=== PATIENT | male | born 1955 | race Caucasian/White ===

== ENCOUNTER → 2016-11-13 | Outpatient (CLI) | payer BC | LOC: GMAL 10:35 | PROVIDERS: ATTEND Family Medicine | DX: E29.1 Testicular hypofunction (principal) ==

== ENCOUNTER → 2017-05-14 | Outpatient (CLI) | payer OTHER | END | disposition home or self-care (01) | LOC: GMAL 11:23 | PROVIDERS: ATTEND Family Medicine | DX: Z00.01 Encounter for general adult medical examination with abnormal findings (principal) ==

== ENCOUNTER → 2017-08-13 | Outpatient (CLI) | payer OTHER | END | disposition home or self-care (01) | LOC: GMAL 11:54 | PROVIDERS: ATTEND Family Medicine | DX: E55.9 Vitamin D deficiency, unspecified (principal) ==

== ENCOUNTER 2017-10-06 20:11 | Emergency (ER) | payer OTHER ==
[2017-10-06 20:32] VITALS: TEMP 98.1; O2SAT 97
[2017-10-06] MEDS ORDERED: KETOROLAC TROMETHAMINE INJ 60 MG/2 ML VIAL IM ONE (20:54)
--- NOTE | 2017-10-06 20:57 | ED.PDOC ---
History of Present Illness - General Chief Complaint: Headache Stated Complaint: headache,bloating,constipation,R ab pain,L ankle p Time Seen by Provider: 10/06/17 20:53 Source: patient, RN notes reviewed, Vital Signs reviewed Exam Limitations: no limitations - History of Present Illness Timing/Duration: other - 3 days Quality: moderate, throbbing Head Injury Location: frontal Recent Head Trauma: no recent headache/trauma, occasional headaches Improving Factors: rest Worsening Factors: nothing Associated Symptoms: denies symptoms Allergies/Adverse Reactions: Allergies NO KNOWN ALLERGY Allergy (Verified 10/06/17 20:31) Home Medications: Ambulatory Orders Amlodipine Besylate 5 mg PO DAILY 10/06/17 Aspirin [Aspirin Adult Low Dose] 81 mg PO DAILY 10/06/17 Blood Pressure Pill DAILY 10/06/17 Hydroxyzine Pamoate [Vistaril] 50 mg PO Q8HR PRN #20 cap 10/06/17 Ketorolac Tromethamine [Toradol Tabs] 10 mg PO Q6HR PRN #20 tab 10/06/17 Metformin HCl 500 mg PO DAILY 10/06/17 Water Pills DAILY 10/06/17 Review of Systems - Review of Systems Constitutional: Denies: fever, weakness EENTM: States: nose congestion. Denies: throat pain, mouth pain Respiratory: Denies: cough, orthopnea, short of breath, wheezing Cardiology: Denies: chest pain, edema, palpitations, syncope Gastrointestinal/Abdominal: States: constipation. Denies: abdominal pain, diarrhea, nausea, vomiting Musculoskeletal: States: other - contusion to left ankle. Denies: joint pain, muscle pain Skin: States: no symptoms reported Neurological: States: no symptoms reported Past Medical History (General) - Patient Medical History Hx Seizures: No Hx Stroke: No Hx Dementia: No Hx Asthma: No Hx of COPD: No Hx Cardiac Disorders: Yes - stents in 2011 Hx Congestive Heart Failure: No Hx Pacemaker: No Hx Hypertension: Yes Hx Thyroid Disease: No Hx Diabetes: Yes Hx Gastroesophageal Reflux: No Hx Renal Disease: No Hx Cancer: No Hx of HIV: No Hx Hepatitis C: No Hx MRSA: No Surgical History: other - Vaccination History Hx Influenza Vaccination: Yes - Social History Hx Tobacco Use: No Hx Alcohol Use: No Family Medical History - Family History Mother Family History: Unknown Physical Exam - Physical Exam General Appearance: Alert, Anxious, Well Developed, Well Groomed, Well Nourished Eyes, Ears, Nose, Throat Exam: normal ENT inspection, other Neck: non-tender, full range of motion, supple, normal inspection Cardiovascular/Chest: normal peripheral pulses, regular rate, rhythm, no edema, no gallop Respiratory: chest non-tender, lungs clear, normal breath sounds, no respiratory distress, no accessory muscle use Gastrointestinal/Abdominal: normal bowel sounds, non tender, soft Back Exam: normal inspection, no CVA tenderness, no vertebral tenderness Extremity: normal range of motion, non-tender, normal inspection, other - edema / contusion to left ankle, 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, 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 Copy, Patient Portal Self Enrollment, Work Release Form Instructions: DI for Headache Diet: resume usual diet Activity: increase activity as tolerated Referrals: Ervin Redmond III, MD [Primary Care Provider] - 1-2 Weeks Prescriptions: Ketorolac Tromethamine [Toradol Tabs] 10 mg PO Q6HR PRN #20 tab PRN Reason: Pain Hydroxyzine Pamoate [Vistaril] 50 mg PO Q8HR PRN #20 cap PRN Reason: Anxiety Home Medications: Ambulatory Orders Amlodipine Besylate 5 mg PO DAILY 10/06/17 Aspirin [Aspirin Adult Low Dose] 81 mg PO DAILY 10/06/17 Blood Pressure Pill DAILY 10/06/17 Hydroxyzine Pamoate [Vistaril] 50 mg PO Q8HR PRN #20 cap 10/06/17 Ketorolac Tromethamine [Toradol Tabs] 10 mg PO Q6HR PRN #20 tab 10/06/17 Metformin HCl 500 mg PO DAILY 10/06/17 Water Pills DAILY 10/06/17 Additional Instructions: return if numbness/ weakness/ worsening/ intractable headache/ problem/ concern
[2017-10-06 21:27] VITALS: BP 143/90
== END 2017-10-06 21:28 | disposition home or self-care (01) ==
LOC: ER 20:11
DX: G44.209 Tension-type headache, unspecified, not intractable (principal); I10 Essential (primary) hypertension; E11.9 Type 2 diabetes mellitus without complications; Z98.61 Coronary angioplasty status; Z79.82 Long term (current) use of aspirin
CPT/HCPCS: 36416; 82948; J1885

== ENCOUNTER 2017-12-09 05:36 | Day surgery (SDC) | payer OTHER ==
[2017-12-09] MEDS ORDERED: LACTATED RINGERS 1,000 ML ONE (06:11)
[2017-12-09 09:46] VITALS: BP 114/79; TEMP 98; O2SAT 98
[2017-12-09] MEDS ORDERED: LIDOCAINE 1% 10 ML VIAL INJ ONE (10:00)
[2017-12-09] MEDS ORDERED: PROPOFOL 200 MG/20 ML VIAL IV ONE (10:00)
--- NOTE | 2017-12-09 10:40 | OP ---
DATE OF PROCEDURE: 12/09/17 PREOPERATIVE DIAGNOSIS: 1. History of polyps, last colonoscopy in 2010. POSTOPERATIVE DIAGNOSIS: 1. Four ascending colon polyps. PROCEDURE: 1. Colonoscopy polypectomy. SURGEON: Domingo Monreal MD. COMPLICATIONS: None apparent. BLOOD LOSS: None. MEDICATIONS: Monitored anesthesia care. DESCRIPTION OF PROCEDURE: Informed consent was obtained prior to sedation. The preprocedure cardiopulmonary assessment was satisfactory. The patient was placed in the left lateral decubitus position and was sedated. A digital rectal exam was unremarkable. The tip of the Olympus colonoscope was inserted in the rectum and guided over to the cecum. The colon was tortuous and there was loop formation and we had to apply abdominal pressure to the abdominal wall in order to reach the cecum. The cecum was reached and identified by locating the ileocecal valve and appendiceal orifice. The ileocecal valve was intubated and terminal ileum was inspected and was unremarkable. Prep was good. The mucosa of the cecum, ascending colon, hepatic flexure, transverse colon, splenic flexure, descending colon and sigmoid colon was closely examined. Direct and retroflexed views of the rectum were obtained. The patient had four polyps in the ascending colon. These were sessile and ranged from 4 to 8 mm in size. These were all removed with snare. Two were removed with a hot snare and two with cold snare. They were all recovered. The procedure was then terminated. RECOMMENDATIONS: 1. Followup polyp pathology to determine timing of the next colonoscopy. 2. Followup with me on a p.r.n. basis. #[id number] cc: Ervin Redmond MD MTDD
== END 2017-12-09 09:35 | disposition home or self-care (01) ==
LOC: AMB 05:36
PROVIDERS: ATTEND Internal Medicine Gastroenterology
DX: Z12.11 Encounter for screening for malignant neoplasm of colon (principal); D12.2 Benign neoplasm of ascending colon; Q43.8 Other specified congenital malformations of intestine; K59.00 Constipation, unspecified; R14.0 Abdominal distension (gaseous); K76.0 Fatty (change of) liver, not elsewhere classified; I10 Essential (primary) hypertension; E11.9 Type 2 diabetes mellitus without complications; K21.9 Gastro-esophageal reflux disease without esophagitis; I25.10 Atherosclerotic heart disease of native coronary artery without angina pectoris; Z86.010 Personal history of colon polyps; Z79.84 Long term (current) use of oral hypoglycemic drugs; Z79.82 Long term (current) use of aspirin; Z79.899 Other long term (current) drug therapy
CPT/HCPCS: 00812; 45385; 82948; J3490; J7120

== ENCOUNTER → 2018-04-29 | Outpatient (CLI) | payer OTHER | LOC: GMAL 10:48 | PROVIDERS: ATTEND Family Medicine | DX: D51.3 Other dietary vitamin B12 deficiency anemia (principal); R53.83 Other fatigue; Z12.5 Encounter for screening for malignant neoplasm of prostate ==

== ENCOUNTER → 2020-05-17 | Outpatient (CLI) | payer MEDICARE | LOC: GMAL 10:39 | PROVIDERS: ATTEND Family Medicine | DX: D51.3 Other dietary vitamin B12 deficiency anemia (principal); E55.9 Vitamin D deficiency, unspecified; Z12.5 Encounter for screening for malignant neoplasm of prostate; E78.49 Other hyperlipidemia; Z79.899 Other long term (current) drug therapy | CPT/HCPCS: 82306; 82607; G0103 ==